=== PATIENT | female | born 1970 | race Caucasian/White ===

== ENCOUNTER 2017-03-16 18:36 | Emergency (ER) | payer BC ==
[2017-03-16 18:50] VITALS: BP 153/109; PULSE 96; RESP 18; TEMP 98.6; O2SAT 96
--- NOTE | 2017-03-16 20:19 | UCPHY ---
H & P Time Seen by Provider: 03/16/17 19:27 Patient Type: Established HPI/ROS: This patient presents with migraine headache. She has a history of the same and usually has relief from butalbital/acetaminophen/codeine and sumatriptan. However, she is currently out of these medications. Her symptoms started last night gradual in onset left frontal in location throbbing aching in nature. She has nausea but no vomiting. Her symptoms worsen with movement. She has associated photophobia. She has no aura. This headache feels like her previous migraine headaches. ROS: No fevers or chills. Neuro: No confusion. No numbness tingling or focal weakness. Musculoskeletal: No recent trauma. HEENT: No nasal congestion or sinus pain. No vision changes. Integumentary: No skin rash. 10 point ROS is otherwise negative Smoking Status: Never smoked Physical Exam: Physical exam: Vital signs are normal General: Patient is in no acute distress. HEENT: Is no external evidence of trauma on exam. Nose atraumatic. Ears: Clear bilaterally with no hemotympanum. Oropharynx: No dental trauma or malocclusion. No intraoral lacerations. Eyes: Pupils are equal and reactive to light. Extraocular motions are intact. Optic fundi: Clear with no papilledema or hemorrhage. Neck: Trachea is midline with no stridor. The patient has no midline neck tenderness and retains a full range of motion without increase in pain. Lungs: Clear to auscultation bilaterally Cardiac: Regular rate and rhythm no murmur gallop or rub. Abdomen: Soft nontender no organomegaly Neuro: GCS of 15. Cranial nerves II through XII intact. Cerebellar exam is normal as judged by symmetric rapid hand movements bilaterally. No pronator drift. No sensory or motor deficits are appreciated. Initial differential diagnosis: Tension headache, migraine headache, other vascular headache, trigeminal neuralgia Constitutional: Initial Vital Signs Temperature (C) 37 C 03/16/17 18:38 Heart Rate 96 03/16/17 18:38 Respiratory Rate 18 03/16/17 18:38 Blood Pressure 153/109 H 03/16/17 18:38 O2 Sat (%) 96 03/16/17 18:38 O2 Delivery Mode Room Air Allergies/Adverse Reactions: ketorolac [From Toradol] Allergy (Severe, Verified 03/16/17 18:51) Mouth Swelling latex Allergy (Severe, Verified 03/16/17 18:51) Anaphylaxis promethazine HCl [From Phenergan] Allergy (Severe, Verified 03/16/17 18:51) Other-Enter Comments cephalexin monohydrate [From Keflex] Allergy (Verified 03/16/17 18:51) narcotics Allergy (Severe, Uncoded 03/16/17 18:51) Vomiting Home Medications: Medication Instructions Recorded Albuterol 03/16/17 Butalbit/Acetamin/Caff/Codeine 03/16/17 Butalbit/Acetamin/Caff/Codeine 1 - 2 each PO Q4 PRN #15 capsule 03/16/17 [Vyrwzk-Grmk-Xgojtgwgrvb-Codein] Ondansetron Odt [Zofran Odt] 4 - 8 mg PO Q4PRN PRN #4 tab 03/16/17 Prevacid 03/16/17 SUMAtriptan [Imitrex 50 MG (*)] 50 - 100 mg PO Q2 PRN #12 tab 03/16/17 Sumatriptan 03/16/17 MDM/Departure - [facility] ED Course/Re-evaluation: The patient declines analgesics or treatment here requesting prescription refills of her migraine medications. She is provided with scripts for the butalbital flashes seem in/codeine and sumatriptan as well as Zofran ODT She understands the need to go the emergency department if she has any significant worsening of her symptoms despite these medications. - Depart Disposition: Home, Routine, Self-Care Clinical Impression: Migraine Qualifiers: Migraine type: unspecified Status migrainosus presence: without status migrainosus Intractability: not intractable Qualified Code(s): G43.909 - Migraine, unspecified, not intractable, without status migrainosus Clinical Impression: (Ruled Out): Migraine aura without headache Condition: Good Instructions: Migraine Headache (ED) Additional Instructions: Diagnosis: Migraine Plan: Imitrex, butalbital, Zofran as needed Go the emergency department for any significant worsening despite treatment plan. Prescriptions: Butalbit/Acetamin/Caff/Codeine [Ujoeas-Salx-Bqaqqdnadss-Codein] 1 - 2 each PO Q4 PRN #15 capsule PRN Reason: migraine Ondansetron Odt [Zofran Odt] 4 - 8 mg PO Q4PRN PRN #4 tab PRN Reason: Vomiting SUMAtriptan [Imitrex 50 MG (*)] 50 - 100 mg PO Q2 PRN #12 tab PRN Reason: migraine Referrals: NONE *PRIMARY CARE P,. [Primary Care Provider] - As per Instructions - PQRS PQRS Measurement: NA
== END 2017-03-16 20:30 | disposition home or self-care (01) ==
LOC: CED 18:36
DX: G43.909 Migraine, unspecified, not intractable, without status migrainosus (principal)
CPT/HCPCS: 99214-PO; G0463-PO